=== PATIENT | female | born 1960 | race Caucasian/White ===

== ENCOUNTER 2018-06-17 11:45 | Emergency (ER) | payer BC, OTHER ==
[~2018-06-17] VITALS: Ht 154.9 cm; Wt 77.1 kg
[2018-06-17 12:37] LABS: ABSOLUTE NEUTROPHILS 6.5 thou/uL (1.4-8.2); BASOPHILS 0.6 % (0.0-2.0); EOSINOPHILS 0.3 % (0.0-3.0); HEMATOCRIT 42.3 % (37.0-47.0); HEMOGLOBIN 14.4 gm/dL (12.0-15.0); LYMPHOCYTES 20.3 % (24.0-44.0); MCV 85.1 fL (80.0-100.0); MONOCYTES 4.4 % (1.0-8.0); PLATELET COUNT 289 thou/uL (150-400); POLYS 74.4 % (36.0-66.0); RBC 4.96 mil/uL (4.20-5.00); RDW 13.4 % (10.5-14.5); WBC 8.7 thou/uL (4.0-11.0)
[2018-06-17 12:46] LABS: ANION GAP 12 mmol/L (7-16); BUN 11 mg/dL (7-18); CALCIUM 9.8 mg/dL (8.5-10.1); CHLORIDE 104 mmol/L (98-107); CO2 25 mmol/L (21-32); CREATININE 0.8 mg/dL (0.6-1.0); GLUCOSE 106 mg/dL (74-106); POTASSIUM 3.9 mmol/L (3.5-5.1); SODIUM 141 mmol/L (136-145)
[2018-06-17 12:56] LABS: ALBUMIN 4.2 g/dL (3.4-5.0); SGOT 31 U/L (15-37); SGPT 47 U/L (30-65); TOTAL BILIRUBIN 0.9 mg/dL (<0.1-1.0); TOTAL PROTEIN 8.4 g/dL (6.4-8.2); TROPONIN-I <0.06 ng/mL (<0.06)
[2018-06-17 14:40] VITALS: BP 118/64
--- NOTE | 2018-06-18 07:47 | EKG ---
[address] [address] ELECTROCARDIOGRAM REPORT Name: JOSÉ MANUEL ALEJANDRE Room #: DEP [facility]#: [id number] ������������������ Admission: 06/17/18 ������������������ Attend Phys: Discharge: 06/17/18 ������������������ Date of : 60 Report #: [id number] ����������������������������������������������������������������� [id number] THIS REPORT FOR: //name// [facility] ED Test Date: 2018-06-17 Test Time: 12:49:20 Pat Name: JOSÉ MANUEL ALEJANDRE Department: Room: Gender: F [employer]: [place] : 1960 Requested By: Ruma Bartholomew Order Number: [id number] MD: Bharathi Smith Measurements Intervals [place] Rate: 104 P: 33 DC: 153 QRS: 55 QRSD: 94 T: 7 QT: 357 QTc: 470 Interpretive Statements Sinus tachycardia Nonspecific T wave abnormality No previous ECG available for comparison Electronically Signed On 06-18-2018 7:47:43 CDT by Bharathi Smith [email or web address] ��������������������������������������������� <ELECTRONICALLY SIGNED> ���������������������������������������� By: Bharathi Smith MD, [facility] ��������������������������������������������� 06/18/18 0747 1249 1249 Bharathi Smith MD, FACC /EPI
== END 2018-06-17 14:41 | disposition home or self-care (01) ==
LOC: ER 11:45
PROVIDERS: Nurse Practitioner Family
DX: R20.2 Paresthesia of skin (principal)